=== PATIENT | female | born 1985 | race Hispanic/Latino ===

== ENCOUNTER 2022-04-27 05:56 | Emergency (ER) | payer OTHER, SELFPAY ==
[2022-04-27] MEDS ORDERED: Morphine 4 MG/ML VIAL ONE (06:26)
[2022-04-27] MEDS ORDERED: Ketorolac Tromethamine 30 MG/ML VIAL ONE (06:26)
== END 2022-04-27 07:28 | disposition home or self-care (01) ==
LOC: ERS 05:56
DX: M62.830 Muscle spasm of back (principal); V89.2XXA Person injured in unspecified motor-vehicle accident, traffic, initial encounter
CPT/HCPCS: 71045; 72100; 96372; J1885; J2270